=== PATIENT | female | born 1965 | race Caucasian/White ===

== ENCOUNTER 2024-07-04 09:36 | Emergency (ER) | payer BC ==
[~2024-07-04] VITALS: Ht 160 cm; Wt 82.6 kg
--- OUTSIDE RECORDS SUMMARY | 2024-07-04 09:43 | XMS ---
PreManage Notification: YELITZA ENRIQUEZ [employer] Events No recent Security Events currently on file CRITERIA MET - 6 ED Visits in 6 Months - [facility] - 2 Visits in 30 Days CARE PROVIDERS IGNACIO PEREZ Internal Medicine: Endocrinology, Diabetes \T\ Current Metabolism PHONE: Unknown Irene has no Care Guidelines for this patient. Jackelyn VISIT COUNT (12 MO.) [address] [place] [address] TOTAL 8 NOTE: Visits indicate total known visits. ED/C VISIT TRACKING (12 MO.) 07/04/2024 09:36 [facility] [place] TYPE: Emergency COMPLAINT: - SHORTNESS OF BREATH 07/01/2024 07:00 [facility] [place] TYPE: Emergency DIAGNOSES: - Pneumonia, unspecified organism - SOB WEAKNESS 06/28/2024 16:32 [facility] [place] TYPE: Emergency DIAGNOSES: - Influenza due to other identified influenza virus with other respiratory manifestations - shortness of breath 04/15/2024 18:43 [facility] [place] TYPE: Emergency DIAGNOSES: - Left upper quadrant pain - chest pain 03/31/2024 16:17 [facility] [place] TYPE: Emergency DIAGNOSES: - Constipation, unspecified - Generalized abdominal pain - Nausea with vomiting, unspecified - ABDOMINAL SWELLING 03/29/2024 17:28 [facility] [place] TYPE: Emergency DIAGNOSES: - Calculus of ureter - Unspecified abdominal pain - FLANK PAIN 11/04/2023 21:14 [facility] [place] TYPE: Emergency DIAGNOSES: - Nonspecific lymphadenitis, unspecified - Other muscle spasm - EAR AND NECK PAIN 08/26/2023 19:18 [facility] TYPE: Emergency DIAGNOSES: - Unstable angina - CHEST TIGHTNESS INPATIENT VISIT TRACKING (12 MO.) 08/27/2023 01:11 [facility]) TYPE: Surgical Services DIAGNOSES: - Abnormal result of other cardiovascular function study - Autoimmune thyroiditis - Essential (primary) hypertension - Gastro-esophageal reflux disease without esophagitis - Other chest pain - Transient cerebral ischemic attack, unspecified - Unstable angina - Exertional CP [email or web address]
[2024-07-04] MEDS ORDERED: AZITHROMYCIN250 MG PO (09:54)
[2024-07-04] MEDS ORDERED: LEVOTHYROXINE50 MCG PO (09:54)
[2024-07-04 10:09] LABS: BASOPHILS 0.7 % (0-2); EOSINOPHILS 1.6 % (0-6); HEMATOCRIT 38.2 % (35.0-50.0); HEMOGLOBIN 13.4 g/dL (12.0-18.0); MCH 30.9 (27-36); MCHC 35.2 g/dl (30-36); MCV 87.8 fl (81-99); MONOCYTES 10.1 % (0-12); NEUTROPHILS 57.6 % (39-80); PLATELET COUNT 360 K/uL (140-440); RBC 4.35 M/ul (4.3-5.7)
[2024-07-04] MEDS ORDERED: KETOROLAC TROMETHAMINE 30 MG/ML VIAL IV ONE (10:15)
[2024-07-04] MEDS ORDERED: SODIUM CHLORIDE 0.9% 1,000 ML IV ONE (10:15)
[2024-07-04] MEDS ORDERED: ALBUTEROL/IPRATROPIUM 3 ML NEB INH ONE (10:15)
[2024-07-04 10:23] LABS: ALBUMIN 2.8 g/dL (3.4-5.0); ALBUMIN/GLOBULIN RATIO 0.61 (1.1-2.4); ALKALINE PHOSPHATASE 101 U/L (46-116); ALT (SGPT) 54 U/L (14-59); ANION GAP 16.5 (7-21); AST (SGOT) 36 U/L (15-37); BILIRUBIN, TOTAL 0.6 ng/dL (0.2-1.0); BUN/CREATININE RATIO 10.97 (6.0-28.6); CALCIUM 8.9 mg/dL (8.5-10.1); CARBON DIOXIDE 21 mmol/L (21-32); CHLORIDE 104 mmol/L (98-107); CREATININE, SERUM 0.82 mg/dL (0.55-1.02); GLOMERULAR FILTRATION RATE,EST 82 mL/min (>60); POTASSIUM 3.5 mmol/L (3.5-5.1); PROTEIN, TOTAL 7.4 g/dL (6.4-8.2); UREA NITROGEN 9 mg/dL (7-18)
[2024-07-04] MEDS ORDERED: methylPREDNISolone SOD SUCC 125 MG/2 ML VIAL IV ONE (10:45)
[2024-07-04] MEDS ORDERED: ALBUTEROL SULFATE 0.5% 2.5 MG/0.5 ML VIAL INH ONE (10:45)
[2024-07-04 12:23] VITALS: BP 137/60
--- NOTE | 2024-07-07 20:25 | EKG ---
[facility] [address] [place], [place] [address] Signed Normal sinus rhythm Normal ECG No previous ECGs available Confirmed by Susan Fererira DO ([id number]) on 07/07/2024 8:25:02 PM Electronically Signed By: SUSAN FERREIRA DO 07/07/242024 PATIENT NAME: YELITZA ENRIQUEZ Electrocardiogram DATE OF : 61 PHYSICIAN: SUSAN FERREIRA DO REPORT #: [id number] REPORT IS CONFIDENTIAL AND NOT TO BE RELEASED WITHOUT AUTHORIZATION
== END 2024-07-04 12:20 | disposition home or self-care (01) ==
LOC: ED 09:36
PROVIDERS: Emergency Medicine
DX: J10.1 Influenza due to other identified influenza virus with other respiratory manifestations (principal); Z88.0 Allergy status to penicillin; Z88.1 Allergy status to other antibiotic agents; Z88.5 Allergy status to narcotic agent; Z88.8 Allergy status to other drugs, medicaments and biological substances; Z79.890 Hormone replacement therapy; Z79.2 Long term (current) use of antibiotics
CPT/HCPCS: 36415; 71045; 80053; 83880; 84484; 85025; 93005; 93010; 94640; 96374; 96375; 99285-25; J1885; J2919; J7030